=== PATIENT | female | born 1940 | race Caucasian/White ===

== ENCOUNTER → 2020-03-21 | Outpatient (CLI) | payer MEDICARE, BC ==
--- NOTE | 2020-03-21 16:35 | MR ---
EXAMINATION TYPE: MR brain wo/w con DATE OF EXAM: 03/21/2020 COMPARISON: 01/24/2020 HISTORY: 80-year-old female F/U TBI, hemorrhage . Note from cerebral angiogram on 01/15/2020 magnus cates prior middle meningeal artery embolization. TECHNIQUE: Multiplanar, multisequence images of the brain and brainstem were acquired before and aft er administration of 5 mL IV Gadavist. Diffusion weighted imaging is performed. FINDINGS: Postsurgical artifact along the left frontal calvarium. DWI sequence shows no evidence of acute infarction. No mass effect or midline shift. Moderate supratentorial volume loss persists. Mild ventriculomegaly likely secondary to central cereb ral atrophy is unchanged. Normal variant persistent CLOTH PIECER is redemonstrated. As compared to 01/24/2020, progressive encephalomalacia anterior left frontal lobe. There is now corti jozef hemosiderin staining overlying this area. Trace subdural hemorrhage remains along the bilateral frontal and temporal convexities. This is brigh t on T2/FLAIR, greatest measuring 3 mm thick anterior left frontal lobe versus 1.3 cm, previously. Th is all appears placed in the majority measuring only 1 mm. It also shows up right spine sagittal T1, for example, refer to image 9. There is some focal subdural hematoma along the far anterior right parafalcine region measuring up to 7 mm thick and spanning 3.3 cm anterior posterior, refer to sagittal T1 image 11 and axial FLAIR chelita ges 24 and 25. This shows bright T2/FLAIR signal and low to intermediate T1 signal. Given signal mary acteristics and given that this is a new finding from 01/24/2020, unable to exclude more acute hemorrh age. Mild scattered burden of T2 bright white matter foci in the subcortical and deep white matter regions likely relating to chronic small vessel ischemic disease. Small air-fluid level within the left sphenoid sinus. Mild mucosal thickening ethmoid air cells. Glob es are intact. IMPRESSION: 1. Improving bilateral subdural hematomas. Trace subdurals remain along the bilateral frontal convexi ties, thickest along the anterior left frontal region measuring 3 mm (versus 1.3 cm, previously). Oth erwise, the residual subdurals are very thin at 1 mm. Signal characteristics (T1 bright T2 bright) pl lisa this as late subacute hemorrhage. 2. However, a small area of subdural hematoma along the far anterior right parafalcine region measuri ng 7 mm thick is new from 01/24/2020 and signal characteristics (T1 dark to intermediate and T2 bright ) suggests that this may represent more acute subdural hematoma. 3. Maturing encephalomalacia anterior left frontal lobe with some new cortical hemosiderin staining h ere. 4. Similar moderate generalized atrophy. No mass effect or midline shift. 5. Small air-fluid left sphenoid sinus may be seen with acute sinusitis. Impression sent to Dr. Osei via secure [employer] at 4:28 PM.
== END | disposition home or self-care (01) ==
LOC: RADMRIMAIN 14:47
PROVIDERS: ATTEND Specialist
DX: G93.89 Other specified disorders of brain (principal); G31.1 Senile degeneration of brain, not elsewhere classified; S06.5X9A Traumatic subdural hemorrhage with loss of consciousness of unspecified duration, initial encounter
CPT/HCPCS: 70553; A9585

== ENCOUNTER → 2020-03-26 | Outpatient (CLI) | payer MEDICARE, BC ==
[2020-03-26 12:42] LABS: Basophils # (A) 0.1 k/uL (0-0.2); Basophils % (A) 1 %; Eosinophils # (A) 0.1 k/uL (0-0.7); Eosinophils % (A) 1 %; HCT 36.2 % (34.0-46.0); HGB 11.3 gm/dL (11.4-16.0); Lymphocytes # (A) 1.8 k/uL (1.0-4.8); Lymphocytes % (A) 41 %; MCH 28.2 pg (25.0-35.0); MCHC 31.1 g/dL (31.0-37.0); MCV 90.7 fL (80.0-100.0); Mean Platelet Volume 7.7; Monocytes # (A) 0.4 k/uL (0-1.0); Monocytes % (A) 8 %; Neutrophils % (A) 45 %; Platelet Count 245 k/uL (150-450); RBC 3.99 m/uL (3.80-5.40); RDW 13.7 % (11.5-15.5); WBC 4.4 k/uL (3.8-10.6)
== END | disposition home or self-care (01) ==
LOC: LABWHC1 10:27
PROVIDERS: ATTEND Internal Medicine
DX: I10 Essential (primary) hypertension (principal)
CPT/HCPCS: 36415; 85025

== ENCOUNTER 2020-04-01 14:41 | Emergency (ER) | payer MEDICARE, BC ==
--- NOTE | 2020-04-01 15:54 | ED ---
Head Injury HPI - General Chief complaint: Head Injury Stated complaint: Fall/head injury Time Seen by Provider: 04/01/20 15:14 Source: patient Mode of arrival: ambulatory Limitations: no limitations - History of Present Illness Initial comments: Patient is a 80-year-old female presenting to the emergency department after she fell into her door about one hour prior to arrival. Patient is still recovering from a fall she had in January of this year where she suffered a skull fracture and had bleeding where she had to have brain surgery. She continues to do occupational therapy, she normally walks with a walker. Patient states was putting paper towel onto a table when it fell, hit her chair and knocked her backward. Patient states that she hit the back of her head on the door behind her. Patient denies any loss of consciousness. She states her head only hurts very minimal in the spot, 06/19. She has no dizziness, no blurry vision, no v omiting, no chest pain or shortness of breath. She is not currently on blood thinners. She denies any other injuries from this fall. Patient has no further complaints at this time. - Related Data Home Medications Medication Instructions Recorded Confirmed Atorvastatin [Lipitor] 10 mg PO HS@199904/01/20 04/01/20 Baclofen 5 mg PO HS@199904/01/20 04/01/20 Cholecalciferol [Vitamin D3 (25 2,000 unit PO DAILY@0800 04/01/20 04/01/20 Mcg = 1000 Iu)] Ezetimibe [Zetia] 10 mg PO DAILY@0800 04/01/20 04/01/20 Midodrine HCl 5 mg PO TID@0800,1200,1800 04/01/20 04/01/20 Multivit-Min/Iron/Folic/Lutein 1 tab PO DAILY@0800 04/01/20 04/01/20 [Centrum Silver Women Tablet] PARoxetine [Paxil] 20 mg PO HS@199904/01/20 04/01/20 Ubidecarenone [Coenzyme Q10] 200 mg PO DAILY@0800 04/01/20 04/01/20 levETIRAcetam [Keppra] 750 mg PO BID@0800,199904/01/20 04/01/20 Allergies/Adverse reactions: Allergies Allergy/AdvReac Type Severity Reaction Status Date / Time cyclobenzaprine Allergy Unknown Verified 04/01/20 18:08 [From Flexeril] meloxicam [From Mobic] Allergy Unknown Verified 04/01/20 18:08 pseudoephedrine Allergy Unknown Verified 04/01/20 18:08 [From Sudafed] Review of Systems ROS Statement: Those systems with pertinent positive or pertinent negative responses have been documented in the HPI. ROS Other: All systems not noted in ROS Statement are negative. Past Medical History Additional Past Medical History / Comment(s): multiple brain bleeds, skull fx History of Any Multi-Drug Resistant Organisms: None Reported Additional Past Surgical History / Comment(s): carniotomy, an dhas plate in skull Past Psychological History: No Psychological Hx Reported Smoking Status: Never smoker Past Alcohol Use History: None Reported Past Drug Use History: None Reported General Exam - General Exam Comments Initial Comments: GENERAL: Patient is well-developed and well-nourished. Patient is nontoxic and in no acute distress. HEAD: Atraumatic, normocephalic. No signs of basal skull fracture, no hematoma. EYES: Pupils equal round and reactive to light, extraocular movements intact, sclera anicteric, conjunctiva are normal. Eyelids were unremarkable. ENT: TMs normal, nares patent, oropharynx clear without exudates. Moist mucous membranes. NECK: Normal range of motion, supple without lymphadenopathy or JVD. LUNGS: Unlabored respirations. Breath sounds clear to auscultation bilaterally and equal. No wheezes rales or rhonchi. HEART: Regular rate and rhythm without murmurs, rubs or gallops. ABDOMEN: Soft, nontender, normoactive bowel sounds. No guarding, no rebound. No masses appreciated. : Deferred MUSCULOSKELETAL: Normal extremities with adequate strength and normal range of motion, no pitting or edema. No clubbing or cyanosis. NEUROLOGICAL: Patient is alert and oriented x 3. Motor and sensory are also intact. Cranial nerves II through XII grossly intact. Symmetrical smile. Normal speech, normal gait. PSYCH: Normal mood, normal affect. SKIN: Warm, Dry, normal turgor, no rashes or lesions noted. Limitations: no limitations Course Vital Signs 04/01/20 04/01/20 04/01/20 14:47 15:21 16:55 Temperature 98.4 F 97.8 F Pulse Rate 71 68 68 Respiratory 18 14 14 Rate Blood Pressure 141/85 144/72 150/81 O2 Sat by Pulse 97 98 100 Oximetry 04/01/20 04/01/20 17:46 19:30 Temperature 98.0 F Pulse Rate 66 74 Respiratory 16 16 Rate Blood Pressure 138/74 135/70 O2 Sat by Pulse 98 96 Oximetry - Reevaluation(s) Reevaluation #1: 04/01/20 16:30 scan was reviewed and showed a 7 mm subdural hematoma that was present on a recent MRI on 03/21/2020. This did have some mixed blood products, there was concern whether this was an old injury or new injury. We will reach out to the radiologist for clarification. Reevaluation #2: 04/01/20 17:20 spoke with radiologist, Dr. Brunner who stated that the size of the bleed is the same from the MRI a week ago however there is a mix of blood products, old and new so it's hard to differentiate if this was from today's fall or the new bleed that her doctor already talked to her about 2 days ago. I will try to contact her neurosurgeon, Dr. Osei. Patient remains stable, no acute neuro deficits, no change. Reevaluation #3: 04/01/20 17:[address] Lopez regarding her imaging and he stated that because of the read of the radiologist he recommended patient be admitted for observation here, read doing the scan in the morning for any change. I spoke with our admitting physicians who are not comfortable with this plan. I will contact Dr. Osei's office again for possible transfer. Patient remained stable. Reevaluation #4: 04/01/20 19:52 I tried to contact Dr. Lopez's office again however he has not been calling back. I contacted [facility] for transfer and they did accept, Dr. Galeas. Patient is in agreement with this plan of care. We will transfer via EMS. Medical Decision Making - Medical Decision Making Patient is a 80-year-old female here after falling backwards into a door hitting the back of her head. Patient recently had neurosurgery secondary to subdural hematoma and skull fracture in January. Her neurosurgeon is Dr. Osei from the [facility] in [place]. She recently had an MRI one week ago for a checkup and it did reveal a new small bleed, their plan was to monitor this and rescan in 3 months. Her computed tomography scan today showed that new bleed and it is hard to determine if this is a new or old bleeding. I did discuss the reading with the radiologist. I did discuss case with her neurosurgeon, Dr. Osei, who felt we should keep the patient observation and redo the scan in the morning. Our admitting physicians are not okay with that plan since we do not have neurosurgery here. Patient will be transferred to [facility] for observation and an additional scan in the morning. Patient is in agreement this plan of care. Patient has remained stable throughout her stay, no neuro deficits. Case has been discussed in detail with Dr. Oviedo. Disposition Clinical Impression: Fall, Subdural hematoma Disposition: OTHER INSTITUTION NOT DEFINED Condition: Stable Is patient prescribed a controlled substance at d/c from ED?: No Referrals: Nonstaff,Physician [Primary Care Provider] - 1-2 days - Out of Hospital Transfer - Req. Specs Out of Hospital Transfer - Requested Specifics: Other Emergency Center ([facility])
--- NOTE | 2020-04-01 16:17 | CT ---
EXAMINATION TYPE: CT brain wo con DATE OF EXAM: 04/01/2020 COMPARISON: MRI 03/21/2020 HISTORY: 80-year-old female Fall/head injury, recent history of brain bleed w/ surgery TECHNIQUE: Examination was done in axial plane without intravenous contrast. Coronal and sagittal r econstructions performed. CT DLP: 1098.4 mGycm Automated exposure control for dose reduction was used. FINDINGS: Left frontal craniotomy flap is redemonstrated. The trace residual bilateral subdural hematomas are no longer well seen by CT. However, there remains some mixed density small 7 mm thick subdural along the anterior right parafalc ine region. Inferiorly, this shows hypodensity suggesting more chronic blood products. Anteriorly, th is shows slight hyperdensity, refer to axial image 37 and coronal image 13. Superiorly, there is a mo re isodense appearance, axial image 44. Mild generalized supratentorial volume loss. Encephalomalacia anterior left frontal lobe. Normal vari ation persisted CSP. No midline shift, hydrocephalus, or effacement of basal subarachnoid cisterns. IMPRESSION: 1. Similar small 7 mm thick subdural hematoma along the anterior right parafalcine region as compared to the MRI of 03/21/2020. This has mixed age blood products, inferiorly chronic hypodense hemorrhage and superiorly subacute isodense components. Some residual high density blood remains anteriorly on axial image 37 and coronal image 13. 2. Otherwise, the other subdural hematomas along the bilateral convexities have resolved on CT. No ma ss effect or midline shift. 3. Left frontal craniotomy flap with underlying encephalomalacia within the anterior left frontal lob e.
[2020-04-01 17:48] VITALS: RESP 16; TEMP 98
[2020-04-01] MEDS ORDERED: PARoxetine 20 MG TAB PO STA (19:35)
[2020-04-01 19:37] VITALS: PULSE 74
[2020-04-01 20:37] VITALS: BP 146/74
== END 2020-04-01 20:40 | disposition other institution (70) ==
LOC: EC 14:41
DX: S06.5X9A Traumatic subdural hemorrhage with loss of consciousness of unspecified duration, initial encounter (principal); Z79.899 Other long term (current) drug therapy; Z88.6 Allergy status to analgesic agent; Z88.8 Allergy status to other drugs, medicaments and biological substances; W01.198A Fall on same level from slipping, tripping and stumbling with subsequent striking against other object, initial encounter; Y92.009 Unspecified place in unspecified non-institutional (private) residence as the place of occurrence of the external cause
CPT/HCPCS: 70450; 99284

== ENCOUNTER → 2020-05-31 | Outpatient (CLI) | payer MEDICARE, BC ==
--- NOTE | 2020-06-02 09:53 | MR ---
EXAMINATION TYPE: MR brain wo/w con DATE OF EXAM: 05/31/2020 COMPARISON: 03/21/2020, CT brain 04/01/2020, MRI 01/24/2020. HISTORY: Prior brain hemorrhage, F/u from January 2020 CONTRAST: Performed utilizing 5 mL intravenous Gadavist gadolinium contrast. TECHNIQUE: Multiplanar, multiecho imaging on a 3.0 Eveline magnet is performed through the brain. Stud y is performed within 24 hours of arrival to the hospital. The craniovertebral junction is normal. The pituitary is normal. There appears to be some thinning of the corpus callosum. Diffusion-weighted imaging is performed. No abnormal hyperintensity is present to suggest an acute i ntracranial infarct or acute ischemic change. White matter changes are in the anterior inferior left temporal lobe. Some periventricular white lupis er changes are present. White matter changes are also in the anterior left frontal lobe. There are sc attered punctate chronic appearing subcortical white matter changes present bilaterally. Left frontal lobe white matter change is improved over the interval. Some post traumatic encephalomalacia of the left frontal lobe may be developing. Ventricles and sulci are appropriate for the patient age. Cavum septum pellucidum and cavum vergae ar e present, normal variants. On inversion recovery weighted sequences there is a small right subdural hematoma. This extends from the interhemispheric fissure adjacent to the frontal lobe around the parietal lobe towards the occipi pierre region. This has a maximum depth of 0.3 cm. Minimal left frontal lobe subdural hematoma remains p resent with a depth of 0.2 cm. T2* sequences demonstrate hemosiderin staining along the left frontal and parietal regions. Some mini mal hypodense hemosiderin staining may be along the inferior right frontal region. No significant mass effect on the adjacent brain is evident on these images. Sulci appear appropriate . No midline shift is evident. Quadrigeminal plate and ambient cistern are patent. Third ventricle is midline. Following contrast administration no suspicious intraparenchymal enhancement is evident. Diffuse dura l enhancement without nodularity may be present. This appears stable from comparison. IMPRESSIONS: 1. Appears to be some residual anterior right subdural hematoma may extend along the right calvarium without significant mass effect on the adjacent brain. 2. Mild diffuse dural enhancement without suspicious nodularity. 3. Chronic appearing white matter changes. 4. 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 Mild hemosiderin staining along the frontal lobes.
== END | disposition home or self-care (01) ==
LOC: RADMRIMAIN 15:16
PROVIDERS: ATTEND Specialist
DX: Z09 Encounter for follow-up examination after completed treatment for conditions other than malignant neoplasm (principal); G93.89 Other specified disorders of brain; R90.82 White matter disease, unspecified
CPT/HCPCS: 70553; A9585